=== PATIENT | male | born 1975 | race Two or more races ===

== ENCOUNTER 2016-10-08 12:31 | Emergency (ER) | payer MEDICAID, OTHER ==
[~2016-10-08] VITALS: Ht 165.1 cm; Wt 56.5 kg
[~2016-10-08 12:31] MED LIST: CIPR500T4 PO
[2016-10-08 12:58] VITALS: Ht 165.1 cm; Wt 56.5 kg
--- NOTE | 2016-10-08 14:15 | ERD ---
ER Documentation Chief Complaint Date/Time DATE: 10/08/16 TIME: 14:13 Chief Complaint PICC LINE DRESSING PROBLEM, REQUIRES REDRESSING HPI This 40-year-old male presents requesting a dressing change for his PICC line. 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 Denies any fevers, vomiting and states that the PICC line is working well and he just wants a dressing change. It may have come out a little bit according to the patient. There is been no bleeding or discharge ROS All systems reviewed and are negative except as per history of present illness. Medications Home Meds Active Scripts Ciprofloxacin Hcl* (Ciprofloxacin Hcl*) 500 Mg Tablet, 500 MG PO BID for 10 Days , TAB Prov:ZHENG MARTINEZ PA-C 04/15/15 PMhx/Soc History of Surgery: Yes (back) Anesthesia Reaction: No Hx Neurological Disorder: No Hx Respiratory Disorders: No Hx Cardiac Disorders: No Hx Psychiatric Problems: No Hx Miscellaneous Medical Probl: No Hx Alcohol Use: No Hx Substance Use: No Hx Tobacco Use: No Physical Exam Vitals Vital Signs Date Time Temp Pulse Resp B/P Pulse Ox O2 Delivery O2 Flow Rate FiO2 10/08/16 12:58 97.4 113 20 131/95 95 Physical Exam Const: [], [id number], pleasant Head: Atraumatic Eyes: Normal Conjunctiva ENT: Normal External Ears, Nose and Mouth. Neck: Full range of motion..~ No meningismus. Resp: Clear to auscultation bilaterally Cardio: Regular rate and rhythm, no murmurs Abd: Soft, non tender, non distended. Normal bowel sounds Skin: No petechiae or rashes. Left antecubital PICC line in place without erythema, discharge. Back: No midline or flank tenderness Ext: No cyanosis, or edema Neur: Awake and alert Psych: Normal Mood and Affect Procedures/MDM Patient presents with a request for PICC line dressing change without symptoms or signs to suggest infection, occlusion, thrombosis, or complicationMay have come out 1-2 cm but PICC line appears functional. There is no PICC line nurse on site to evaluate for advancing the PICC line. I am recommending he continue use the PICC line as it is rather than risk infection of the advancing it. Patient is advised to follow-up with his primary doctor otherwise was given the hours of PICC line nurse availability for consultation regarding advancing or replacing electively Dressings are changed and patient will be discharged home with further monitoring at home and ongoing care for his care team. He should return for fevers, vomiting, new worsening symptoms with primary care doctor Departure Diagnosis: Primary Impression: Encounter for wound re-check Additional Impression: Status post peripherally inserted central catheter (PICC) cent... Patient Instructions: Picc Line Care Additional Instructions: Cheque otro vez con strong doctor primario en el proximo thornton or regresa para mas o nueva simptomas. MEGAN LANE MD Oct 08, 2016 14:15
== END 2016-10-08 15:00 | disposition home or self-care (01) ==
LOC: FTE 12:31
DX: Z48.01 Encounter for change or removal of surgical wound dressing (principal); Z95.828 Presence of other vascular implants and grafts
CPT/HCPCS: 99281